=== PATIENT | female | born 1980 | race Caucasian/White ===

== ENCOUNTER 2023-03-06 11:12 | Emergency (ER) | payer OTHER, SELFPAY ==
--- NOTE | 2023-03-06 11:26 | CRLHL7_ITS ---
For Patients: As a result of the Century Cures Act, medical imaging exams and procedure reports are released immediately into your electronic medical record. You may view this report before your referring provider. If you have questions, please contact your health care provider. INDICATION: Head injury. Headaches. TECHNIQUE: CT of the head without contrast. Coronal and sagittal reformats are included. COMPARISON: None. FINDINGS: No acute intracranial hemorrhage. No mass effect or midline shift. No hydrocephalus or extra-axial collections. Scattered white matter hypoattenuation, typical for chronic microvascular ischemic change. No acute osseous abnormalities. Mastoid air cells and paranasal sinuses are clear. Normal soft tissues. IMPRESSION: IMPRESSION: 1. No acute intracranial abnormalities. Please note that all CT scans at this facility use dose modulation, iterative reconstruction, and/or weight-based dosing when appropriate to reduce radiation dose to as low as reasonably achievable. Dictated by Evan Kingston MD @ 03/06/2023 12:56:40 PM (Electronically Signed)
[2023-03-06 11:55] VITALS: BP 119/80; PULSE 88; RESP 20; TEMP 36.7; O2SAT 98
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
== END 2023-03-06 13:12 | disposition home or self-care (01) ==
LOC: ED 12:49
PROVIDERS: Emergency Provider Family Medicine; PCP Family Medicine
DX: S06.0X0A Concussion without loss of consciousness, initial encounter (principal); R51.9 Headache, unspecified
CPT/HCPCS: 70450; 99283; 99284